=== PATIENT | male | born 1975 | race Caucasian/White ===

== ENCOUNTER 2018-09-06 07:04 | Emergency (ER) | payer SELFPAY ==
[2015-04-22 04:06] VITALS: Ht 170.2 cm; Wt 81.8 kg
[~2018-09-06] VITALS: Ht 170.2 cm; Wt 81.8 kg
[~2018-09-06 07:04] MED LIST: BAYER CHEWABLE81 MG PO; HYDROCODONE-APA1 TAB PO; PERCOCET 10/3251 TA1 PO
[2018-09-06] MEDS ORDERED: RISPERDAL2 MG PO (07:35)
[2018-09-06] MEDS ORDERED: KEPPRA500 MG PO (07:35)
[2018-09-06 07:42] VITALS: BP 142/90
== END 2018-09-06 07:43 | disposition home or self-care (01) ==
LOC: D.ER 07:04
DX: G40.909 Epilepsy, unspecified, not intractable, without status epilepticus (principal); F20.9 Schizophrenia, unspecified

== ENCOUNTER 2018-09-07 20:54 | Emergency (ER) | payer SELFPAY ==
[~2018-09-07] VITALS: Ht 170.2 cm; Wt 79.4 kg
[~2018-09-07 20:54] MED LIST changes: +KEPPRA500 MG PO; +RISPERDAL2 MG PO
[2018-09-07 21:04] VITALS: Ht 170.2 cm; Wt 79.4 kg
[2018-09-07 21:22] LABS: BASOPHILS 0.2 % (0-2); EOSINOPHILS 0.7 % (0-7); HEMATOCRIT 38.8 % (42.0-54.0); HEMOGLOBIN 13.4 g/dL (13.5-17.5); IMMATURE GRANULOCYTES 0.3 % (0-5); LYMPHOCYTES 9.9 % (15-50); MCH 29.5 pg (26.0-34.0); MCHC 34.5 g/dL (31.0-37.0); MCV 85.3 fL (80.0-100.0); MEAN PLATELET VOLUME 9.2 fL (7.4-10.4); MONOCYTES 7.4 % (2-11); NEUTROPHILS 81.5 % (40-80); PLATELET COUNT 276 10x3/uL (130-400); RBC 4.55 10x6/uL (4.20-6.10); RDW 14.2 % (11.5-14.5); WBC 10.6 10x3/uL (4.8-10.8)
[2018-09-07 21:29] VITALS: BP 125/93
[2018-09-07 21:30] LABS: APTT 22.1 SECONDS (22.8-39.4); INR 1.17 (0.85-1.17); PROTIME 14.3 SECONDS (11.6-15.0)
[2018-09-07 21:35] LABS: ALBUMIN 3.1 g/dL (3.4-5.0); ALKALINE PHOSPHATASE 41 U/L (46-116); ALT (SGPT) 87 U/L (10-68); BILIRUBIN - TOTAL 0.29 mg/dL (0.2-1.3); CALC OSMOLALITY 279 mosm/kg (275-300); CALCIUM 7.7 mg/dL (8.5-10.1); CHLORIDE - SERUM 102 mmol/L (98-107); CREATININE - SERUM 0.9 mg/dL (0.6-1.3); GLUCOSE 129 mg/dL (74-106); POTASSIUM - SERUM 3.2 mmol/L (3.5-5.1); PROTEIN - SERUM 6.5 g/dL (6.4-8.2); SODIUM 138 mmol/L (136-145); UREA NITROGEN 19 mg/dL (7-18); eGFR NON AFRICAN AMERICAN > 90 mL/min (90-120)
[2018-09-07 21:48] LABS: CKMB 25.7 U/L (0.0-3.6); CREATINE KINASE 2820 UL (21-232); MAGNESIUM - SERUM 2.1 mg/dL (1.8-2.4); TROPONIN-I 0.017 ng/mL (0.000-0.060)
== END 2018-09-07 22:05 | disposition left against medical advice (07) ==
LOC: D.ER 20:54
PROVIDERS: Family Medicine
DX: M62.82 Rhabdomyolysis (principal); E87.8 Other disorders of electrolyte and fluid balance, not elsewhere classified

== ENCOUNTER 2018-09-07 23:48 | Observation (INO) | payer SELFPAY ==
[~2018-09-07] VITALS: Ht 170.2 cm; Wt 82.7 kg
[2018-09-08 01:15] VITALS: BP 127/95
[2018-09-08 02:02] VITALS: BP 127/83
[2018-09-08 03:38] VITALS: BP 114/63; Ht 170.2 cm; Wt 82.7 kg
--- NOTE | 2018-09-08 03:46 | NUR ---
RECIEVED REPORT FROM LISA IN ER. ARRIVED TO THE FLOOR IN W/C WITH STAFF ACCOMPANING. ORIENTED X4. VERY LETHARGIC AND HARD TO KEEP AWAKE. WAS ABLE TO ANSWER QUESTIONS. THEN WOULD FALL ASLEEP AGAIN. STATING " I'M TIRED". DENIES ANY NEEDS OTHER THAN SLEEP AT THIS TIME.
[2018-09-08 05:30] VITALS: BP 114/63
--- NOTE | 2018-09-08 07:30 | NUR ---
RECEIVED PT IN BED RESTING WITH EYES CLOSED RESP UNLABORED LT HAND SALINE LOCK INTACT SITE FREE OF REDNESS OR EDEMA
[2018-09-08 08:03] VITALS: BP 121/87
--- NOTE | 2018-09-08 11:12 | NUR ---
INFORMED BY NURSE THAT PT HAS BEEN GONE FROM ROOM FOR 45 MINUTES. TRIED TO CALL PT AND LEFT A VOICE MAIL. ALSO TRIED HIS AND MESSAGE STATED THAT SHE IS NOT ACCEPTING PHONE CALLS AT THIS TIME.
--- NOTE | 2018-09-08 11:16 | NUR ---
PT STILL HAS PIV IN.
--- NOTE | 2018-09-08 11:30 | NUR ---
MULTIPLE ATTEMPTS WERE MADE TO LOCATE PT THROUGHOUT THE HOSPITAL PT APPARENTLY LEFT HOSPITAL AMA
--- NOTE | 2018-09-08 12:49 | MORECARE ---
CASE MANAGEMENT DISCHARGE SUMMARY PATIENT: LANNY BALES UNIT: [id number] ADM DATE: 09/08/18 AGE: 43 : 71 SEX: M ROOM/BED: D[facility]8 AUTHOR: GARY CABRAL PHYSICIAN: REFERRING PHYSICIAN: TYSHAWN HER MD DATE OF SERVICE: 09/08/18 Discharge Plan Patient Name: LANNY BALES Facility: [facility]:[place] : 1975 Planned Disposition: Left Against Medical Advice Anticipated Discharge Date: 09/08/18 Discharge Date: 09/08/2018 Expected LOS: 1 Initial Reviewer: [id number] Initial Review Date: 09/08/2018 Generated: 09/08/18 1:49 pm Patient Name: LANNY BALES Page [id number] at 1249 All edits/amendments must be made on the electronic document DICTATION DATE: 09/08/18 1248 PATTERN GRADER CUTTER: TEO 09/08/18 1248 RPT#: [id number] DC DATE:09/08/18 STATUS: DIS IN [facility] [address] [place] [address] END OF REPORT
== END 2018-09-08 11:30 | disposition left against medical advice (07) ==
LOC: D.ER 23:48 → D.EDHOLD 09-08 02:18 → D.M2 09-08 02:18 → OBSVTIME 09-08 02:18 → D.M2 09-08 02:37
PROVIDERS: ADMIT Internal Medicine Nephrology; ATTEND Internal Medicine Nephrology
DX: M62.82 Rhabdomyolysis (principal); R07.89 Other chest pain; R11.0 Nausea